=== PATIENT | female | born 1970 | race Caucasian/White ===

== ENCOUNTER → 2017-02-01 | Outpatient (CLI) | payer BC | LOC: MC.RAD 10:32 | DX: Z12.31 Encounter for screening mammogram for malignant neoplasm of breast (principal) ==

== ENCOUNTER → 2017-02-06 | Outpatient (CLI) | payer OTHER | LOC: MC.RAD 07:30 | DX: R92.0 Mammographic microcalcification found on diagnostic imaging of breast (principal) ==

== ENCOUNTER → 2017-02-08 | Outpatient (CLI) | payer BC | END | disposition home or self-care (01) | LOC: MC.RAD 07:00 | DX: N60.11 Diffuse cystic mastopathy of right breast (principal); N60.21 Fibroadenosis of right breast; R92.0 Mammographic microcalcification found on diagnostic imaging of breast ==

== ENCOUNTER → 2018-06-21 | Outpatient (CLI) | payer OTHER | LOC: MC.RAD 08:42 | DX: Z12.31 Encounter for screening mammogram for malignant neoplasm of breast (principal) ==

== ENCOUNTER → 2018-06-28 | Outpatient (CLI) | payer OTHER | LOC: MC.RAD 10:25 | DX: N60.01 Solitary cyst of right breast (principal) ==

== ENCOUNTER → 2019-01-18 | Outpatient (CLI) | payer OTHER | LOC: COL.RAD 07:19 | DX: M54.5 Low back pain (principal) ==

== ENCOUNTER → 2019-02-13 | Outpatient (CLI) | payer OTHER | LOC: MHCPAIN 08:55 | DX: G89.29 Other chronic pain (principal); M47.817 Spondylosis without myelopathy or radiculopathy, lumbosacral region; M53.3 Sacrococcygeal disorders, not elsewhere classified | CPT/HCPCS: G0463 ==

== ENCOUNTER → 2022-02-10 | Outpatient (CLI) | payer OTHER | LOC: MC.RAD 08:57 | DX: Z12.31 Encounter for screening mammogram for malignant neoplasm of breast (principal); Z98.82 Breast implant status ==

== ENCOUNTER → 2022-02-17 | Outpatient (CLI) | payer OTHER | LOC: MC.RAD 07:45 | DX: N60.02 Solitary cyst of left breast (principal); N60.01 Solitary cyst of right breast ==

== ENCOUNTER → 2024-03-26 | Outpatient (CLI) | payer OTHER ==
[~2024-03-26] MED LIST: ADIPEX-P37.5 M2 PO; ALEVE 220MG220 MG PO; ZYRTEC-D 5 MG-11 TER PO
== END ==
LOC: MC.RAD 10:02
DX: Z12.31 Encounter for screening mammogram for malignant neoplasm of breast (principal); N63.20 Unspecified lump in the left breast, unspecified quadrant

== ENCOUNTER 2024-04-02 07:58 | Day surgery (SDC) | payer OTHER ==
[~2024-04-02] VITALS: Ht 172.7 cm; Wt 80.7 kg
[~2024-04-02 07:58] MED LIST changes: -ADIPEX-P37.5 M2 PO; -ALEVE 220MG220 MG PO; +LR 1,000 ML IV SCH; +Ondansetron 4 MG/2 ML VIAL IV PRN; -ZYRTEC-D 5 MG-11 TER PO
[2024-04-02] MEDS ORDERED: ZYRTEC-D 5 MG-11 TER PO (08:23)
[2024-04-02] MEDS ORDERED: ALEVE 220MG220 MG PO (08:23)
[2024-04-02] MEDS ORDERED: ADIPEX-P37.5 M2 PO (08:24)
[2024-04-02 08:34] VITALS: BP 116/78; PULSE 74; TEMP 98
[2024-04-02] MEDS ORDERED: Glycopyrrolate 0.2 MG/ML 1 ML VIAL ONE (08:35)
[2024-04-02] MEDS ORDERED: Lidocaine PF 2% (20 MG/ML) 5 ML VIAL ONE (08:35)
--- NOTE | 2024-04-02 08:46 | NUR ---
Patient ambulatory to bay 4 with steady gait, breathing even and unlabored. Pt is alert and oriented. Consents reviewed and signed by the patient. IV established. LR infusion via gravity at [facility]. Call light in reach. Warm blanket provided.
[2024-04-02 09:50] VITALS: BP 106/78; PULSE 86; TEMP 97.9
[2024-04-02 10:05] VITALS: BP 115/81; PULSE 81
[2024-04-02 10:20] VITALS: BP 126/92; PULSE 72
--- NOTE | 2024-04-02 10:40 | NUR ---
0950: Pt arrived to bay 4 - ambulated from cart to chair with standby assist 0952: pt tolerating po intake well 1002: MD Vero in room with pt 1007: pt verbalizes understanding discharge materials 1030: pt escorted out via wheelchair, picked up by
== END 2024-04-02 10:40 | disposition home or self-care (01) ==
LOC: SDCO 07:58
DX: Z12.11 Encounter for screening for malignant neoplasm of colon (principal); D12.2 Benign neoplasm of ascending colon; D12.5 Benign neoplasm of sigmoid colon; K64.0 First degree hemorrhoids; K64.4 Residual hemorrhoidal skin tags; Z87.891 Personal history of nicotine dependence
CPT/HCPCS: J2704; J7120